=== PATIENT | female | born 1930 | race Asian ===

== ENCOUNTER 2017-07-26 11:28 | Observation (INO) | payer MEDICARE ==
[2017-07-26] VITALS (8 sets, daily range): BP systolic 106–219; BP diastolic 59–102; PULSE 66–80; RESP 18–20; TEMP 97.5–98.7; O2SAT 93–97
[~2017-07-26] VITALS: Ht 149.9 cm; Wt 60.7 kg
[~2017-07-26 11:28] MED LIST: ALEN70 PO; AMLO5TAB96 PO; ASPI81 PO; FISH1000 PO; HYDR-2768 PO; KLOR20TA6 PO; LEVEMIR SQ; NOVOLOGP2 SQ; TAB-TAB PO; ZOCO40TA PO
[2017-07-26] MEDS ORDERED: METF1000 PO (11:51)
[2017-07-26] MEDS ORDERED: LEVEMIR SQ ×2 (11:51)
[2017-07-26] MEDS ORDERED: LISI-515 PO (11:51)
[2017-07-26] MEDS ORDERED: TEMA15CA PO (11:51)
[2017-07-26] MEDS ORDERED: ASPI-516 CHEW (11:51)
[2017-07-26] MEDS ORDERED: METO25TA3 PO (11:51)
[2017-07-26] MEDS ORDERED: PRAV80TA2 PO (11:51)
[2017-07-26] MEDS ORDERED: NOVOLOGP2 SQ (11:51)
[2017-07-26] MEDS ORDERED: OXYB5TAB PO (11:51)
[2017-07-26] MEDS ORDERED: DORZ2SOL15 EACH EYE (11:51)
[2017-07-26] MEDS ORDERED: HYDR25TA5 PO (11:51)
[2017-07-26] MEDS ORDERED: GABA300C5 PO (11:51)
[2017-07-26] MEDS ORDERED: POTA10TA2 PO (11:51)
--- NOTE | 2017-07-26 11:59 | PD ---
HPI Chief Complaint: Fall Time Seen by Provider: 11:38 Travel History International Travel<30 days: No Contact w/Intl Traveler<30days: No Traveled to known affect area: No History of Present Illness HPI This patient is brought in by her daughter. She had 2 falls last night. She called the daughter around 10 PM last night and said that her right hand was weak. Today her strength is normal. Her daughter states that she wasn't making a lot of sense on the phone and seemed confused. There is no head injury or headache. No fever. Blood pressure 220 systolic. No prior history of stroke. No alleviating factors. No exacerbating factors. She denies injury from the fall. She uses a walker to get around. She is not sure why she fell. The daughter believes she has a touch of dementia [facility] Past Medical History Diabetes: Yes Patient Takes Glucophage: No Hypertension: Yes ?: Not Past Surgical History Gynecologic Surgery: Yes (HYSTERECTOMY) Social History Alcohol Use: No Tobacco Use: No Substance Use: No Allergies-Medications (Allergen,Severity, Reaction): Coded Allergies: metformin (Unverified Allergy, Mild, vomiting, 07/26/17) Reported Meds & Prescriptions Reported Meds & Active Scripts Active Reported Temazepam 15 Mg Cap 15 Mg PO HS PRN Pravastatin 80 Mg Tab 80 Mg PO HS Potassium Chloride ER (Potassium Chloride) 10 Meq Tab 10 Meq PO DAILY Oxybutynin ER 24 HR (Oxybutynin Chloride) 5 Mg Tab 5 Mg PO DAILY Novolog Inj (Insulin Aspart) 1,000 Unit/10 Ml Vial 4 Units SQ TID Metoprolol Tartrate 25 Mg Tab 25 Mg PO BID Metformin (Metformin HCl) 1,000 Mg Tab 1,000 Mg PO DAILY@1600 With a meal Lisinopril 20 Mg Tab 20 Mg PO DAILY Levemir Inj (Insulin Detemir) 1,000 unit/ 10 ML Vial 4 Units SQ TID Do not mix with any other Insulin. Levemir Inj (Insulin Detemir) 1,000 unit/ 10 ML Vial 10 Units SQ BID Do not mix with any other Insulin. Hydrochlorothiazide 25 Mg Tab 25 Mg PO DAILY Gabapentin 300 Mg Cap 300 Mg PO BID Dorzolamide-Timolol Opth Drops 22.3-6.8 Mg/Ml Soln 1 Drop EACH EYE BID Aspirin 81 Mg Chew 81 Mg CHEW DAILY Review of Systems General / Constitutional: No: Fever Eyes: No: Visual changes HENT: No: Headaches Cardiovascular: No: Chest Pain or Discomfort Respiratory: No: Shortness of Breath Gastrointestinal: No: Abdominal Pain Genitourinary: No: Dysuria Musculoskeletal: Positive: Weakness, No: Pain Skin: No Rash Neurologic: Positive: Weakness, Change in Mentation, Sensory Disturbance Psychiatric: No: Depression Endocrine: No: Polydipsia Hematologic/Lymphatic: No: Easy Bruising Physical Exam Narrative GENERAL: Well-nourished, well-developed patient in no apparent distress. SKIN: Focused skin assessment reveals no rash and nodules. Skin is Warm and dry. HEAD: Atraumatic. Normocephalic. EYES: Pupils equal and round. No scleral icterus. No injection or drainage. ENT: No nasal bleeding or discharge. Mucous membranes pink and moist. NECK: Trachea midline. No JVD. CARDIOVASCULAR: Regular rate and rhythm. No murmur appreciated. RESPIRATORY: No accessory muscle use. Clear to auscultation. Breath sounds equal bilaterally. GASTROINTESTINAL: Abdomen soft, non-tender, nondistended. Hepatic and splenic margins not palpable. MUSCULOSKELETAL: No obvious deformities. No clubbing. No cyanosis. No edema. NEUROLOGICAL: Awake and alert. No obvious cranial nerve deficits. Motor grossly within normal limits. No slurring. It is understandable a few concentrate, very soft-spoken. PSYCHIATRIC: Appropriate mood and affect; insight and judgment seems reduced Data Data Last Documented VS Vital Signs Date Time Temp Pulse Resp B/P (MAP) Pulse Ox O2 Delivery O2 Flow Rate FiO2 07/26/17 14:36 66 18 106/73 (84) 97 Room Air 07/26/17 11:36 98.7 Orders Orders Electrocardiogram (07/26/17 11:46) Prothrombin Time / Inr (Pt) (07/26/17 11:46) Act Partial Throm Time (Ptt) (07/26/17 11:46) Complete Blood Count With Diff (07/26/17 11:46) Basic Metabolic Panel (Bmp) (07/26/17 11:46) Urinalysis - C+S If Indicated (07/26/17 11:46) Ct Brain W/O Iv Contrast(Rout) (07/26/17 11:46) Ecg Monitoring (07/26/17 11:46) Iv Access Insert/Monitor (07/26/17 11:46) Oximetry (07/26/17 11:46) Sodium Chloride 0.9% Flush (Ns Flush) (07/26/17 12:00) Labetalol Inj (Trandate Inj) (07/26/17 12:00) Cath For Specimen (07/26/17 11:59) Urine Culture (07/26/17 12:15) Femur (Ap & Lat/2vws) (07/26/17 ) Pelvis, Ap Only (Routine) (07/26/17 ) Admit Order (Ed Use Only) (07/26/17 14:49) Labs Laboratory Tests Test 07/26/17 12:00 07/26/17 12:15 White Blood Count 9.9 TH/MM3 Red Blood Count 4.92 MIL/MM3 Hemoglobin 15.2 GM/DL Hematocrit 45.9 % Mean Corpuscular Volume 93.3 FL Mean Corpuscular Hemoglobin 30.9 PG Mean Corpuscular Hemoglobin Concent 33.2 % Red Cell Distribution Width 12.9 % Platelet Count 235 TH/MM3 Mean Platelet Volume 7.8 FL Neutrophils (%) (Auto) 68.1 % Lymphocytes (%) (Auto) 23.3 % Monocytes (%) (Auto) 6.0 % Eosinophils (%) (Auto) 0.7 % Basophils (%) (Auto) 1.9 % Neutrophils # (Auto) 6.7 TH/MM3 Lymphocytes # (Auto) 2.3 TH/MM3 Monocytes # (Auto) 0.6 TH/MM3 Eosinophils # (Auto) 0.1 TH/MM3 Basophils # (Auto) 0.2 TH/MM3 CBC Comment DIFF FINAL Differential Comment Prothrombin Time 11.4 SEC Prothromb Time International Ratio 1.1 RATIO Activated Partial Thromboplast Time 28.5 SEC Blood Urea Nitrogen 19 MG/DL Creatinine 0.60 MG/DL Random Glucose 159 MG/DL Calcium Level 9.3 MG/DL Sodium Level 136 MEQ/L Potassium Level 3.9 MEQ/L Chloride Level 96 MEQ/L Carbon Dioxide Level 34.3 MEQ/L Anion Gap 6 MEQ/L Estimat Glomerular Filtration Rate 94 ML/MIN Urine Collection Type CLEAN CATCH Urine Color YELLOW Urine Turbidity SL CLOUDY Urine pH 8.0 Urine Specific [place] 1.015 Urine Protein 30 mg/dL Urine Glucose (UA) NEG mg/dL Urine Ketones NEG mg/dL Urine Occult Blood TRACE Urine Nitrite NEG Urine Bilirubin NEG Urine Urobilinogen 0.2 MG/DL Urine Leukocyte Esterase MOD Urine RBC 4-9 /hpf Urine WBC 50-99 /hpf Urine WBC Clumps MOD Urine Squamous Epithelial Cells 6-8 /hpf Urine Amorphous Sediment FEW Urine Bacteria MOD /hpf Microscopic Urinalysis Comment CULTURE INDICATED Urine Collection Time 1215 MDM Medical Decision Making Medical Screen Exam Complete: Yes Emergency Medical Condition: Yes Medical Record Reviewed: Yes Differential Diagnosis CVA, TIA, hypertensive urgency Narrative Course I have reviewed the patient's electronic medical record. IV placed and labs sent I reviewed her EKG which shows sinus rhythm at [address] elevation or ectopy. Extended cardiac monitoring reveals sinus rhythm without ectopy Brain CT shows old stroke change I don't see an acute neurologic deficit now. She does seem a bit slow and confused Urinalysis shows 50-1 white cells consistent with UTI and will be cultured CBC metabolic profile is reasonably normal, mild hyperglycemia Patient couldn't really stand on her own. She has diffuse generalized weakness. I don't see focal deficit. She does have a bruise in the right hip so I did some x-rays. Both femur and pelvis are negative for fracture Case reviewed with primary physician Dr. Marc Owens She will observe in the hospital for generalized weakness TIA and UTI Diagnosis Primary Impression: Generalized weakness Additional Impressions: Transient ischemic attack Qualified Codes: G45.9 - Transient cerebral ischemic attack, unspecified UTI (urinary tract infection) Qualified Codes: N30.00 - Acute cystitis without hematuria Admitting Information Admitting Physician Requests: Observation Gabriel Blood MD Jul 26, 2017 11:59
[2017-07-26] MEDS ORDERED: SODIUM CHLORIDE 0.9% FLUSH 10 ML FLUSH IVF PRN (12:00)
[2017-07-26] MEDS ORDERED: LABETALOL HCL 100 MG/20 ML VIAL IV PUSH ONE (12:00)
[2017-07-26 12:13] LABS: AUTOMATED NEUTROPHIL # 6.7 TH/MM3 (1.8-7.7); BASOPHIL # 0.2 TH/MM3 (0-0.2); BASOPHIL % 1.9 % (0.0-2.0); EOSINOPHIL # 0.1 TH/MM3 (0-0.4); EOSINOPHIL % 0.7 % (0.0-4.0); HEMATOCRIT 45.9 % (35.0-46.0); HEMOGLOBIN 15.2 GM/DL (11.6-15.3); LYMPH % 23.3 % (9.0-44.0); LYMPHOCYTE # 2.3 TH/MM3 (1.0-4.8); MEAN CELL VOLUME 93.3 FL (80.0-100.0); MEAN CORPUSCULAR HEMOGLOBIN 30.9 PG (27.0-34.0); MEAN CORPUSCULAR HGB CONC 33.2 % (32.0-36.0); MEAN PLATELET VOLUME 7.8 FL (7.0-11.0); MONOCYTE # 0.6 TH/MM3 (0-0.9); NEUT % 68.1 % (16.0-70.0); PLATELET COUNT 235 TH/MM3 (150-450); RED BLOOD COUNT 4.92 MIL/MM3 (4.00-5.30); RED CELL DISTRIBUTION WIDTH 12.9 % (11.6-17.2); WHITE BLOOD COUNT 9.9 TH/MM3 (4.0-11.0)
[2017-07-26 12:21] LABS: BILIRUBIN, URINE NEG (NEG); BLOOD, URINE TRACE (NEG); GLUCOSE,URINE NEG (NEG); KETONE, URINE NEG (NEG); NITRITE,URINE NEG (NEG); URINE COLOR YELLOW (YELLW/STRAW); URINE LEUKOCYTE ESTERASE MOD (NEG)
[2017-07-26 12:28] LABS: CALCIUM 9.3 MG/DL (8.5-10.1)
[2017-07-26 12:29] LABS: BICARBONATE 34.3 MEQ/L (21.0-32.0)
[2017-07-26 12:30] LABS: INTERNATIONAL NORMALIZED RATIO 1.1 RATIO; PROTHROMBIN TIME - PATIENT 11.4 SEC (9.8-11.6)
[2017-07-26 12:30] LABS: AMORPHOUS SEDIMENT, URINE FEW; BACTERIA, URINE MOD /hpf; WHITE BLOOD CELL CLUMPS MOD
[2017-07-26 12:32] LABS: CREATININE 0.6 MG/DL (0.50-1.00)
--- NOTE | 2017-07-26 12:39 | RADRPT ---
EXAM DATE/TIME: 07/26/2017 12:20 [facility] COMPARISON: No previous studies available for comparison. INDICATIONS : Patient fell last night. RADIATION DOSE: 62.98 CTDIvol (mGy) MEDICAL HISTORY : Hypertension. Diabetes. SURGICAL HISTORY : Hysterectomy. Right shoulder repair. ENCOUNTER: Initial ACUITY: 2 days PAIN SCALE: 5/10 LOCATION: cranial TECHNIQUE: Multiple contiguous axial images were obtained of the head. Using automated exposure control and adj ustment of the mA and/or kV according to patient size, radiation dose was kept as low as reasonably a chievable to obtain optimal diagnostic quality images. DICOM format image data is available electro nically for review and comparison. FINDINGS: Chronic ischemic changes are noted. There is focal encephalomalacia in the right frontal lobe consist ent with an old infarct. An old deep white matter infarct is identified in the left frontal lobe. There are no findings characteristic of an acute infarct or hemorrhage. There is no evidence of edema or mass effect. There are no extra-axial fluid collections. Right maxillary sinus is completely opacified. CONCLUSION: 1. 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 2. No evidence of acute infarct, hemorrhage, mass or edema. 3. Opacified right maxillary sinus. Paxton Steen MD on July 26, 2017 at 12:34 Board Certified Radiologist. This report was verified electronically.
--- NOTE | 2017-07-26 14:55 | RADRPT ---
EXAM DATE/TIME: 07/26/2017 14:07 [facility] COMPARISON: No previous studies available for comparison. INDICATIONS : Right side hip pain post fall last night MEDICAL HISTORY : Hypertension. Diabetes mellitus type II. SURGICAL HISTORY : None. ENCOUNTER: Initial ACUITY: 2 days PAIN SCORE: 4/10 LOCATION: Right lateral femur FINDINGS: 4 views of the right femur show no fracture or dislocation. There is a rounded focus of sclerosis inv olving the cortex of the proximal femoral metaphysis on its lateral aspect. No periosteal thickening. Bone mineralization is normal throughout. Atherosclerotic changes seen involving the SFA. 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 CONCLUSION: 1. No acute abnormality. 2. Focus of sclerosis involving the proximal femoral metaphysis. Exact etiology is uncertain. 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 An outpatient CT scan could be utilized to further evaluate. Norman Michael Jr., MD on July 26, 2017 at 14:48 Board Certified Radiologist. This report was verified electronically.
--- NOTE | 2017-07-26 14:56 | RADRPT ---
EXAM DATE/TIME: 07/26/2017 14:07 [facility] COMPARISON: No previous studies available for comparison. INDICATIONS : Right side pelvic pain post fall MEDICAL HISTORY : Diabetes mellitus type II. Hypertension SURGICAL HISTORY : None. ENCOUNTER: Initial ACUITY: 2 days PAIN SCORE: 4/10 LOCATION: Right lateral pelvis FINDINGS: A single frontal view of the pelvis demonstrates no evidence of fracture. The bony pelvic ring is in tact. Moderate diffuse bony demineralization. Minimal atherosclerotic calcification of the regional v asculature. Dextroscoliosis of the visualized portions of the lumbar spine with associated degenerati ve changes. CONCLUSION: No fracture. Tera Del Valle MD on July 26, 2017 at 14:52 Board Certified Radiologist. This report was verified electronically.
[2017-07-26] MEDS ORDERED: DEXTROSE 50% IN WATER 50 ML VIAL(D50) IV PUSH PRN (16:00)
[2017-07-26] MEDS ORDERED: GLUCAGON 1 MG/ML VIAL OTHER PRN (16:00)
[2017-07-26] MEDS ORDERED: SODIUM CHLORIDE 0.9% FLUSH 10 ML FLUSH IV FLUSH PRN (16:00)
[2017-07-26] MEDS ORDERED: TEMAZEPAM 15 MG CAP PO PRN (16:00)
[2017-07-26] MEDS: cefTRIAXone INJ 1,000 MG in SODIUM CHLORIDE 0.9% INJ 100 ML IV SCH (17:01)
[2017-07-26] MEDS: metFORMIN HCL 500 MG TAB PO SCH (17:45)
[2017-07-26] MEDS ORDERED: INSULIN ASPART 1,000 UNITS/10 ML VIAL SQ SCH (18:00)
[2017-07-26] MEDS ORDERED: INSULIN DETEMIR 100 UNITS/ML VIAL SQ SCH (18:00)
[2017-07-26] MEDS: INSULIN ASPART SUPPLEMENTAL SCALE SQ SCH ×2 (18:43→20:57)
[2017-07-26] MEDS: INSULIN DETEMIR 100 UNITS/ML VIAL SQ SCH (20:56)
[2017-07-26] MEDS: GABAPENTIN 300 MG CAP PO SCH (20:57)
[2017-07-26] MEDS: METOPROLOL TARTRATE 25 MG TAB PO SCH (20:57)
[2017-07-26] MEDS: PRAVASTATIN SOD 80 MG TAB PO SCH (20:57)
[2017-07-26] MEDS: SODIUM CHLORIDE 0.9% FLUSH 10 ML FLUSH IV FLUSH SCH (20:57)
[2017-07-26] MEDS: DORZOLAMIDE/TIMOLOL OPTH SOLN 10 ML BTL EACH EYE SCH (21:00)
[2017-07-27] VITALS (8 sets, daily range): BP systolic 98–187; BP diastolic 54–96; PULSE 58–82; RESP 16–20; TEMP 96–97.5; O2SAT 93–95
[2017-07-27] MEDS: INSULIN ASPART SUPPLEMENTAL SCALE SQ SCH ×4 (08:00→21:57)
[2017-07-27] MEDS ORDERED: ASPIRIN 81 MG CHEW TAB CHEW SCH (09:00)
[2017-07-27] MEDS ORDERED: TOLTERODINE TARTRATE 2 MG CAP LA PO SCH (09:00)
[2017-07-27] MEDS: INSULIN DETEMIR 100 UNITS/ML VIAL SQ SCH ×2 (09:00→21:56)
--- NOTE | 2017-07-27 09:54 | RADRPT ---
EXAM DATE/TIME: 07/27/2017 09:26 [facility] COMPARISON: No previous studies available for comparison. INDICATIONS : Cerebrovascular accident. MEDICAL HISTORY : Hypertension. Diabetes. SURGICAL HISTORY : Hysterectomy. Right shoulder surgery. ENCOUNTER: Initial ACUITY: 1 day PAIN SCORE: 1/10 LOCATION: Bilateral neck PEAK SYSTOLIC VELOCITIES (cm/sec): ICA/CCA RATIO: Right: 1.5 Left: 2.1 ICA: Right: 84 Left: 106 CCA: Right: 56 Left: 50 ECA: Right: 50 Left: 44 VERTEBRAL: Right: 47 antegrade Left: 49 antegrade Elevated flow velocities and ICA/CCA ratios have been found to correlate with increased degrees of vessel stenosis, calculated as percentage of diameter relative to a normal segment of distal ICA/CCA FINDINGS: RIGHT CAROTID: Mild atherosclerotic plaquing at the carotid bifurcation. No significant stenosis is visualized. The waveforms are within normal limits. LEFT CAROTID: Mild atherosclerotic plaquing at the carotid bifurcation. No significant stenosis is visualized. The waveforms are within normal limits. VERTEBRAL ARTERIES: Antegrade flow is seen in both vertebral arteries. MISCELLANEOUS: None. CONCLUSION: There is mild atherosclerotic plaquing at both carotid bifurcations. No focal high grade or hemodynam ically significant stenosis. David Zavala MD on July 27, 2017 at 9:51 Board Certified Radiologist. This report was verified electronically.
[2017-07-27] MEDS: HYDROCHLOROTHIAZIDE 25 MG TAB PO SCH (09:56)
[2017-07-27] MEDS: POTASSIUM CHLORIDE 10 MEQ CONTROLLED RELEASE TAB PO SCH (09:56)
[2017-07-27] MEDS: METOPROLOL TARTRATE 25 MG TAB PO SCH ×2 (09:57→21:55)
[2017-07-27] MEDS: LISINOPRIL 20 MG TAB PO SCH (09:57)
[2017-07-27] MEDS: GABAPENTIN 300 MG CAP PO SCH ×2 (09:57→21:55)
[2017-07-27] MEDS: SODIUM CHLORIDE 0.9% FLUSH 10 ML FLUSH IV FLUSH SCH ×2 (09:58→21:55)
[2017-07-27] MEDS: DORZOLAMIDE/TIMOLOL OPTH SOLN 10 ML BTL EACH EYE SCH ×2 (09:59→21:56)
--- NOTE | 2017-07-27 10:55 | MH ---
cc: Shital Webb MD DATE OF ADMISSION: 07/26/2017 ADMITTING DIAGNOSIS: Urinary tract infection, weakness. HISTORY OF PRESENT ILLNESS: The history is obtained from the patient, her family and obtaining and reviewing electronic medical records. The patient was brought to the emergency room today by her family. According to one daughter, the patient called her last night and said that her right hand and foot were weak. The patient's daughter came to the house and by the time the daughter came to the house, she states the patient was sitting in her chair and did not seem to be having any other problems. She got her up and helped her get to bed. The patient does use a walker to ambulate according to the daughter. She felt that her right leg was dragging a little bit. It is important to note that the patient does have dementia and it is a little bit difficult to elicit or for her to recall a lot of the events that occurred. According to the family members, the patient does get up several times at night to urinate, at approximately 05:00 in the morning, the niece who lives with her got up to give her her insulin and heard her calling. At that time, she found her in the bedroom on the floor. Not able to tell me, this relative was not in the room, in what position they found her. From best that we can determine in speaking to the patient, she got up to go to the restroom and she lost her balance on her walker. There is no mention of weakness that may have caused this. The niece was able to get her up, gave her insulin and some breakfast. Apparently her sugars were in the 200s at this time and left her in a chair. Other family members who came later in the day and that morning to check on her said they were unable to get her to stand and became concerned, called the paramedics and brought her to the emergency room. The patient really cannot recall most of the event and what transpired last night. She requires a lot of prompting from her family. The family does tell me that earlier in the day, before going to the emergency room, she seemed a little bit more confused, was speaking American, which even though she is American, she normally does not speak that language a lot apparently. The patient tells me right now that her main complaint is that she is sore from where she fell. She does not feel like she has any difficulty with her right hand or right leg at this point. PAST MEDICAL HISTORY: Significant for type 2 diabetes, hypertension, hyperlipidemia, dementia. She does have issues with recurrent UTIs. PAST SURGICAL HISTORY: Includes hysterectomy and right shoulder repair. ALLERGIES: None. MEDICATIONS: Include pravastatin 80 milligrams at bedtime, metoprolol 25 milligrams twice a day, lisinopril 20 milligrams daily, baby aspirin, gabapentin 300 milligrams twice a day, temazepam 15 milligrams at bedtime as needed, potassium chloride 10 milliequivalents daily, hydrochlorothiazide 25 milligrams daily, dorzolamide, timolol, ophthalmic drops 1 drop in each eye twice a day, metformin 1000 milligrams in the evening, insulin, she takes Levemir 10 units twice a day and Novolog 4 units three times a day. She also takes oxybutynin extended release 24, 5 milligrams daily. HABITS: She does not smoke or consume alcohol. SOCIAL HISTORY: She lives with family members. She is . She uses a walker to ambulate. REVIEW OF SYSTEMS: No complaints of chest pain, no shortness of breath. No cough or congestion. She does state that she has had a good appetite. No change in her bowel movements. She has been more incontinent of late, usually which is consistent with her UTIs. She is complaining of some soreness in the right leg when she ambulates since the fall. PHYSICAL EXAMINATION: VITAL SIGNS: Temperature is 97.5, pulse is 70, respirations 18, blood pressure is 127/59, pulse oximetry is 93% on room air. GENERAL: She is alert and very pleasant, smiling, in good spirits. Does not appear to be in any acute distress. HEENT: Normocephalic, atraumatic. EOM is intact. She has moist oral mucosa. NECK: Supple. I hear no bruits. PULMONARY: Clear to auscultation bilaterally. CARDIOVASCULAR: Her heart is regular. I hear no ectopy or murmurs. ABDOMEN: Good bowel sounds in all 4 quadrants. No rebound or guarding. EXTREMITIES: Show no clubbing, cyanosis or edema. She has good grasp and good sensation in both hands and feet at this point. She does have areas of ecchymosis on the dorsum aspect of her right wrist and into her middle and ring fingers. She does have a small area of ecchymosis as well on her lateral thigh, but much larger on the posterior area, close overlying her hip. She is able to move her legs, raise them and equally from the bed. No pain elicited in external or internal rotation of her hips. LABORATORY DATA: Lab work that was done when she came in showed a white count of 9.9, hemoglobin of 15.2, hematocrit of 45.9. Sodium was 136, potassium 3.9, BUN was 19, creatinine was 0.6, random glucose was 159. PT was 11.4, INR was 1.1, PTT was 28.5. Her UA showed moderate leukocyte esterase, moderate WBCs and clumps, moderate bacteria. IMAGING: X-ray of the pelvis showed no fracture. X-ray of the femur showed fracture/dislocation. Focus of sclerosis involving the proximal femoral metaphysis was present. Recommended outpatient CT to be done to better evaluate. CT scan of the brain was done that showed old infarcts in the right frontal cortex and left frontal deep white matter. No evidence of acute infarct or pacified right maxillary sinus. ASSESSMENT AND PLAN: This is a 87-year-old female presenting to the emergency room by the family, after a fall last evening and questionable what appears to have been a transient episode of numbness and weakness in the right hand and foot. The history is very difficult to ascertain, but it does sound suspicious for a transient ischemic attack. At this point, she has been admitted for workup for a transient ischemic attack. We will continue on her current medications and put her on a full aspirin. In terms of her diabetes, we will continue with her Levemir and metformin, put her on a sliding scale. I do not think she is very compliant with a diabetic diet, so we will how her sugars do here in the hospital on an [place] [employer] diet. In terms of her hypertension, continue with her regular medication. She does have an urinary tract infection. She has had episodes of confusion in the past with her urinary tract infections. We will start her on Rocephin intravenous and then switch her over depending on how she does and what the culture shows. Further recommendations as the case develops. Shital Webb MD [facility] , 06:10 PM , 06:57 PM
--- NOTE | 2017-07-27 12:17 | HHI.PR ---
Subjective Remarks some numbness this am Objective Vitals Vital Signs Date Time Temp Pulse Resp B/P (MAP) Pulse Ox O2 Delivery O2 Flow Rate FiO2 07/27/17 08:00 97.5 70 16 168/96 (120) 94 07/27/17 04:00 96.0 59 16 98/54 (69) 94 07/27/17 00:00 96.2 60 16 100/56 (71) 94 07/26/17 20:57 69 07/26/17 20:00 98.0 71 18 160/74 (102) 95 07/26/17 17:54 97.5 70 18 127/59 (81) 93 07/26/17 15:30 63 20 134/67 (89) 95 07/26/17 14:36 66 18 106/73 (84) 97 Room Air 07/26/17 12:52 69 18 106/73 (84) 96 Room Air 07/26/17 12:21 76 97 07/26/17 12:21 76 20 147/92 (110) 97 Room Air 07/26/17 12:21 76 20 147/92 (110) 97 Room Air Result Diagram: 07/26/17 1200 07/26/17 1200 Imaging Last Impressions Carotid Artery Ultrasound 07/27/17 0000 Signed Impressions: Service Date/Time: Thursday, July 27, 2017 09:26 - CONCLUSION: There is mild atherosclerotic plaquing at both carotid bifurcations. No focal high grade or hemodynamically significant stenosis. David Zavala MD Head CT 07/26/17 1146 Signed Impressions: Service Date/Time: Wednesday, July 26, 2017 12:20 - CONCLUSION: 1. 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 2. No evidence of acute infarct, hemorrhage, mass or edema. 3. Opacified right maxillary sinus. Paxton Steen MD Pelvis X-Ray 07/26/17 0000 Signed Impressions: Service Date/Time: Wednesday, July 26, 2017 14:07 - CONCLUSION: No fracture. Tera Del Valle MD Femur X-Ray 07/26/17 0000 Signed Impressions: Service Date/Time: Wednesday, July 26, 2017 14:07 - CONCLUSION: 1. No acute abnormality. 2. Focus of sclerosis involving the proximal femoral metaphysis. Exact etiology is uncertain. This may simply relate to an osteoid osteoma. An outpatient CT scan could be utilized to further evaluate. Norman Michael Jr., MD Objective Remarks Lying in bed [place], alert, cta ant rrr good bowel sounds moves all extremities well A/P Problem List: (1) Transient ischemic attack ICD Codes: G45.9 - Transient cerebral ischemic attack, unspecified Status: Acute Plan: carotid ultrasound showed mild plaque awaiting MRI's (2) Diabetes ICD Codes: E11.9 - Type 2 diabetes mellitus without complications Status: Chronic Plan: cont metformin not eating as much cover with sliding scale (3) Generalized weakness ICD Codes: R53.1 - Weakness Status: Acute Plan: ambulated with PT needed assistance uses walker at home family would like to take her home but may need rehab try to mobilize today (4) UTI (urinary tract infection) ICD Codes: N39.0 - Urinary tract infection, site not specified Status: Acute Plan: on rocephin await culture (5) Dementia ICD Codes: F03.90 - Unspecified dementia without behavioral disturbance Problem Qualifiers (1) Transient ischemic attack: Qualified Codes: G45.9 - Transient cerebral ischemic attack, unspecified (2) UTI (urinary tract infection): Qualified Codes: N30.00 - Acute cystitis without hematuria Shital Webb MD Jul 27, 2017 12:17
--- NOTE | 2017-07-27 14:22 | RADRPT ---
EXAM DATE/TIME: 07/27/2017 13:32 [facility] COMPARISON: CT BRAIN W/O CONTRAST, July 26, 2017, 12:20. INDICATIONS : Right sided weakness. MEDICAL HISTORY : Diabetes mellitus type 2. Dementia. SURGICAL HISTORY : Rotator cuff, right. Hysterectomy. ENCOUNTER: Initial ACUITY: 2 day PAIN SCORE: 0/10 LOCATION: head TECHNIQUE: Multiplanar, multisequence MRI of the brain was performed without contrast. FINDINGS: CEREBRUM: The ventricles are normal for age. There is diffuse bilateral cortical atrophy. No evidence of midlin e shift, mass lesion, hemorrhage . No extraaxial fluid collections are seen. The pituitary gland an d suprasellar cistern are normal in configuration. There is evidence of an old infarct involving the right frontal temporal region and the left mid parietal lobe. WHITE MATTER: Moderate chronic white matter changes are seen bilaterally characteristic of ischemic demyelinization . POSTERIOR FOSSA: The cerebellum and brainstem are intact. The 4th ventricle is midline. The cerebellopontine angle is unremarkable. The cerebellar tonsils are normal in position. DIFFUSION IMAGING: There is a focal area of increased signal in the left thalamus characteristic for a small focal acute infarct. There is a smaller area of increased signal in the medial left occipital lobe characteristi c of a small acute infarct. No other acute infarcts are demonstrated. EXTRACRANIAL: Chronic sinus disease in the right maxillary sinus. CONCLUSION: 1. Small acute infarct involving the left thalamus. 2. Small focal acute infarct involving the medial left occipital lobe. 3. Diffuse bilateral cortical atrophy and chronic white matter changes. 4. 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 Chronic right maxillary sinus disease. David Zavala MD on July 27, 2017 at 14:15 Board Certified Radiologist. This report was verified electronically.
--- NOTE | 2017-07-27 14:27 | RADRPT ---
EXAM DATE/TIME: 07/27/2017 13:32 [place] COMPARISON: No previous studies available for comparison. INDICATIONS : Right sided weakness. MEDICAL HISTORY : Diabetes mellitus type 2. Dementia. SURGICAL HISTORY : Rotator cuff, right. Hysterectomy. ENCOUNTER: Initial ACUITY: 2 day PAIN SCORE: 0/10 LOCATION: head Please note a normal MRA of the brain does not entirely exclude the possibility of a small aneurysm, nor the possibility of distal intracranial vessel disease. TECHNIQUE: 3D time of flight MRA was performed. Source images, multiplanar STS MIP, and 3D volume MIP reconstru ctions were reviewed. FINDINGS: There is excellent visualization of the major intracranial arteries out to the second-order branch ve ssels. The patient has variant anatomy. 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 Persistent circulation noted on the left. There is an infundibulum seen involving the posterior cerebral artery on the left which arises from the ICA . There is no evidence for aneurysm or vascular malformation. Atherosclerotic plaque is seen involvi ng the intracavernous ICA on the right. This generates a 40% stenosis at the junction of the intracav ernous and supraclinoid ICA. There is also 40-50% stenosis involving the proximal M2 branch on the ri ght. No luminal narrowing seen on the left. No filling defects observed to suggest thrombus. CONCLUSION: 1. No emboli or thrombus observed. 2. Atherosclerotic disease particularly on the right as detailed above. This would not coincide with the patient's symptoms of right-sided weakness. Norman Michael Jr., MD on July 27, 2017 at 14:14 Board Certified Radiologist. This report was verified electronically.
--- NOTE | 2017-07-27 15:35 | ECHRPT ---
Indication: cva/tia CONCLUSIONS The left ventricular systolic function is normal with an estimated ejection fraction in the range of 55-60%. Doppler parameters are consistent with impaired left ventricular relaxtion (grade 1 diastolic dysfun ction). Trace mitral valve regurgitation. There is trace tricuspid valve regurgitation. BP: / HR: Rhythm: MEASUREMENTS (Male / Female) Normal Values Technical Quality:Technically difficult study 2D ECHO LV Diastolic Diameter PLAX 5.0 cm 4.2 - 5.9 / 3.9 - 5.3 cm LV Systolic Diameter PLAX 3.9 cm IVS Diastolic Thickness 0.8 cm 0.6 - 1.0 / 0.6 - 0.9 cm LVPW Diastolic Thickness 0.8 cm 0.6 - 1.0 / 0.6 - 0.9 cm LV Relative Wall Thickness 0.3 RV Internal Dim ED PLAX 2.2 cm M-MODE Aortic Root Diameter MM 3.5 cm LA Systolic Diameter MM 3.0 cm LA Ao Ratio MM 0.9 AV Cusp Separation MM 1.6 cm DOPPLER Mitral E Point Velocity 26.7 cm/s Mitral A Point Velocity 86.9 cm/s Mitral E to A Ratio 0.3 LV E' Lateral Velocity 5.6 cm/s Mitral E to LV E' Lateral Ratio 4.8 LV E' Septal Velocity 4.5 cm/s Mitral E to LV E' Septal Ratio 6.0 FINDINGS LEFT VENTRICLE Normal left ventricular size. The left ventricular systolic function is normal with an estimated ejection fraction in the range of 55-60%. No regional wall motion abnormalities are present. Doppler parameters are consistent with impaired left ventricular relaxtion (grade 1 diastolic dysfun ction). RIGHT VENTRICLE The right ventricle was not well visualized. LEFT ATRIUM The left atrial size is normal. RIGHT ATRIUM The right atrium is not well visualized. ATRIAL SEPTUM Normal atrial septal thickness AORTA The aortic root and proximal ascending aorta are normal in size on limited imaging. MITRAL VALVE Structurally normal mitral valve. Mild mitral annular calcification. Trace mitral valve regurgitation. No mitral valve stenosis. AORTIC VALVE Trileaflet aortic valve. No aortic valve stenosis or regurgitation. TRICUSPID VALVE Structurally normal tricuspid valve. There is trace tricuspid valve regurgitation. No tricuspid valve stenosis. PULMONARY VALVE The pulmonary valve is not well visualized. PERICARDIUM No pericardial effusion. Garry Easley DO (Electronically Signed) Final Date:27 July 2017 15:34
[2017-07-27 16:08] LABS: CALCIUM 9.2 MG/DL (8.5-10.1)
[2017-07-27 16:09] LABS: BICARBONATE 34.8 MEQ/L (21.0-32.0)
[2017-07-27 16:12] LABS: CREATININE 0.65 MG/DL (0.50-1.00)
[2017-07-27] MEDS: cefTRIAXone INJ 1,000 MG in SODIUM CHLORIDE 0.9% INJ 100 ML IV SCH (17:43)
[2017-07-27] MEDS: metFORMIN HCL 500 MG TAB PO SCH (17:44)
[2017-07-27] MEDS: CLOPIDOGREL 75 MG TAB PO SCH (20:32)
[2017-07-27] MEDS: PRAVASTATIN SOD 80 MG TAB PO SCH (21:55)
[2017-07-28] VITALS: BP 117/58; PULSE 63; RESP 20; TEMP 97.2; O2SAT 94
[2017-07-28 04:00] VITALS: BP 103/50; PULSE 61; RESP 20; TEMP 96.4; O2SAT 94
[2017-07-28 08:00] VITALS: BP 142/84; PULSE 64; PULSE 69; RESP 14; TEMP 96.5; O2SAT 91
[2017-07-28] MEDS: INSULIN ASPART SUPPLEMENTAL SCALE SQ SCH ×2 (08:00→12:48)
--- NOTE | 2017-07-28 08:35 | EKG ---
Date Performed: 07/26/2017 Time Performed: 11:56:58 PTAGE: 87 years EKG: Sinus rhythm VOLTAGE CRITERIA FOR LVH POSSIBLE ANTERIOR MYOCARDIAL INFARCTION ABNORMAL ECG Compared to PREVIOUS TRACING , voltage for LVH is new. PREVIOUS TRACIN08/05/1999 14.42 DOCTOR: Anjel Simon Interpretating Date/Time 07/28/2017 08:33:31
[2017-07-28] MEDS: SODIUM CHLORIDE 0.9% FLUSH 10 ML FLUSH IV FLUSH SCH ×2 (09:00→09:53)
[2017-07-28] MEDS ORDERED: ASPIRIN 325 MG TAB PO SCH (09:00)
[2017-07-28] MEDS: DORZOLAMIDE/TIMOLOL OPTH SOLN 10 ML BTL EACH EYE SCH (09:53)
[2017-07-28] MEDS: INSULIN DETEMIR 100 UNITS/ML VIAL SQ SCH (09:53)
[2017-07-28] MEDS: GABAPENTIN 300 MG CAP PO SCH (09:54)
[2017-07-28] MEDS: LISINOPRIL 20 MG TAB PO SCH (09:54)
[2017-07-28] MEDS: CLOPIDOGREL 75 MG TAB PO SCH (09:54)
[2017-07-28] MEDS: HYDROCHLOROTHIAZIDE 25 MG TAB PO SCH (09:55)
[2017-07-28] MEDS: POTASSIUM CHLORIDE 10 MEQ CONTROLLED RELEASE TAB PO SCH (09:55)
[2017-07-28] MEDS: METOPROLOL TARTRATE 25 MG TAB PO SCH (09:55)
--- NOTE | 2017-07-28 11:18 | HHI.PR ---
Subjective Remarks No complaints, grandaughter at bedside, family making arrangements for care at home, she needs full assistence and they are working on care at night as she tends to get up to use the bathroom , they have a commode but not a front wheeled walker, granddaughter will be with her during the day. They are all very engaged with her care Objective Vitals Vital Signs Date Time Temp Pulse Resp B/P (MAP) Pulse Ox O2 Delivery O2 Flow Rate FiO2 07/28/17 08:00 96.5 69 14 142/84 (103) 91 07/28/17 04:00 96.4 61 20 103/50 (67) 94 07/28/17 00:00 97.2 63 20 117/58 (77) 94 07/27/17 21:00 74 07/27/17 20:00 96.1 76 20 141/66 (91) 93 07/27/17 18:07 82 150/86 (107) 07/27/17 16:00 97.5 66 20 187/85 (119) 95 07/27/17 12:00 97.5 58 20 155/72 (99) 95 Result Diagram: 07/26/17 1200 07/27/17 1530 Imaging Last Impressions Head Magnetic Resonance Angiography 07/27/17 0000 Signed Impressions: Service Date/Time: Thursday, July 27, 2017 13:32 - CONCLUSION: 1. No emboli or thrombus observed. 2. Atherosclerotic disease particularly on the right as detailed above. This would not coincide with the patient's symptoms of right-sided weakness. Norman Michael Jr., MD Carotid Artery Ultrasound 07/27/17 0000 Signed Impressions: Service Date/Time: Thursday, July 27, 2017 09:26 - CONCLUSION: There is mild atherosclerotic plaquing at both carotid bifurcations. No focal high grade or hemodynamically significant stenosis. David Zavala MD Brain MRI 07/27/17 0000 Signed Impressions: Service Date/Time: Thursday, July 27, 2017 13:32 - CONCLUSION: 1. Small acute infarct involving the left thalamus. 2. Small focal acute infarct involving the medial left occipital lobe. 3. Diffuse bilateral cortical atrophy and chronic white matter changes. 4. 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 Chronic right maxillary sinus disease. David Zavala MD Head CT 07/26/17 1146 Signed Impressions: Service Date/Time: Wednesday, July 26, 2017 12:20 - CONCLUSION: 1. 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 2. No evidence of acute infarct, hemorrhage, mass or edema. 3. Opacified right maxillary sinus. Paxton Steen MD Pelvis X-Ray 07/26/17 0000 Signed Impressions: Service Date/Time: Wednesday, July 26, 2017 14:07 - CONCLUSION: No fracture. Tera Del Valle MD Femur X-Ray 07/26/17 0000 Signed Impressions: Service Date/Time: Wednesday, July 26, 2017 14:07 - CONCLUSION: 1. No acute abnormality. 2. Focus of sclerosis involving the proximal femoral metaphysis. Exact etiology is uncertain. This may simply relate to an osteoid osteoma. An outpatient CT scan could be utilized to further evaluate. Norman Michael Jr., MD Last Impressions Carotid Artery Ultrasound 07/27/17 0000 Signed Impressions: Service Date/Time: Thursday, July 27, 2017 09:26 - CONCLUSION: There is mild atherosclerotic plaquing at both carotid bifurcations. No focal high grade or hemodynamically significant stenosis. David Zavala MD Head CT 07/26/17 1146 Signed Impressions: Service Date/Time: Wednesday, July 26, 2017 12:20 - CONCLUSION: 1. 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 2. No evidence of acute infarct, hemorrhage, mass or edema. 3. Opacified right maxillary sinus. Paxton Steen MD Pelvis X-Ray 07/26/17 0000 Signed Impressions: Service Date/Time: Wednesday, July 26, 2017 14:07 - CONCLUSION: No fracture. Tera Del Valle MD Femur X-Ray 07/26/17 0000 Signed Impressions: Service Date/Time: Wednesday, July 26, 2017 14:07 - CONCLUSION: 1. No acute abnormality. 2. Focus of sclerosis involving the proximal femoral metaphysis. Exact etiology is uncertain. This may simply relate to an osteoid osteoma. An outpatient CT scan could be utilized to further evaluate. Norman Michael Jr., MD Objective Remarks sitting in recliner, dosing arousable lungs clear heart rrr +bs ,nontender no edema A/P Problem List: (1) Transient ischemic attack ICD Codes: G45.9 - Transient cerebral ischemic attack, unspecified Status: Acute Plan: carotid ultrasound showed mild plaques MRI showed acute small thalamic and occipital infarct (2) Diabetes ICD Codes: E11.9 - Type 2 diabetes mellitus without complications Status: Chronic Plan: cont metformin appetite improving covered with sliding scale (3) Generalized weakness ICD Codes: R53.1 - Weakness Status: Acute Plan: ambulated with PT needed assistance uses walker with seat at home will order front wheeled walker family will purchase a gait belt (4) UTI (urinary tract infection) ICD Codes: N39.0 - Urinary tract infection, site not specified Status: Acute Plan: on rocephin E.Coli will d/c on bactrim (5) Dementia ICD Codes: F03.90 - Unspecified dementia without behavioral disturbance Status: Chronic Plan: stable, lives with family and has close supervision of medications, meals etc (6) CVA (cerebral vascular accident) ICD Codes: I63.9 - Cerebral infarction, unspecified Status: Acute Plan: was on aspirin plavix added Discharge Planning plan for discharge today, family making arrangement for safe home environment Problem Qualifiers (1) Transient ischemic attack: Qualified Codes: G45.9 - Transient cerebral ischemic attack, unspecified (2) UTI (urinary tract infection): Qualified Codes: N30.00 - Acute cystitis without hematuria Shital Webb MD Jul 28, 2017 11:18
[2017-07-28] MEDS ORDERED: PLAV75TA29 PO (11:31)
[2017-07-28] MEDS ORDERED: BACT800T5 PO (11:31)
--- NOTE | 2017-07-28 11:32 | HHI.FF ---
Face to Face Verification Diagnosis: (1) CVA (cerebral vascular accident) (2) Generalized weakness (3) UTI (urinary tract infection) (4) Dementia (5) Diabetes Physical Therapy Order: Evaluate and Treat, Improve ambulation, Strength and gait training Home Health Aide Order: To Assist In: Bathing and personal care I have seen patient Sunni Suarez on 07/28/17. My clinical findings support the need for the requested home health care services because: Ltd mobility - disease progression Limited ability to care for self Impaired cognition/judgement High risk of falls I certify that my clinical findings support that this patient is homebound because: Impaired cognitive ability/safety Unsteady gait/balance Unsafe to leave home unassisted Shital Webb MD Jul 28, 2017 11:32
[2017-07-28] MEDS ORDERED: WALKER WHEELS/F1 MIS (11:34)
[2017-07-28 12:00] VITALS: BP 148/93; PULSE 67; RESP 18; TEMP 97; O2SAT 94
[2017-07-28] MEDS: metFORMIN HCL 500 MG TAB PO SCH (16:27)
--- NOTE | 2017-08-01 00:28 | HM ---
Date Performed: 07/27/2017 Time Performed: 17:14:00 HOOKUP DATE: 07/27/17 05:14:00 PM Tue ANALYSIS START TIME: 07/27/2017 5:19:00 PM ANALYSIS END TIME: 07/28/2017 4:50:07 PM PATIENT AGE: 87 PATIENT HEIGHT PATIENT WEIGHT: 154 DRUG LIST: ROOM # [id number] PATIENT DIAGNOSIS: general weakness/TIA/UTI TEST NARRATIVE: The patient's average heart rate was 70 BPM. No episodes of tachycardia wer e noted. No episodes of bradycardia were noted. No pauses exceeding 2.0 seconds were noted. 66 ventricular ectopics, which represented < 1% of the total beat count, were noted. The highest sarina tricular ectopic frequency occurred from 07:00 PM to 08:00 PM Tue. During this time 11 VE(s) occurre d. Ventricular ectopics were observed as 66 isolated beat(s) only. No couplets or runs were noted. No supraventricular ectopics were noted. No episodes of ST depression (defined as -1.0 mm or more) were noted in channel 1. No episodes of ST depression (defined as -1.0 mm or more) were noted in channel 2. No episodes of ST depression (defined as -1.0 mm or more) were noted in channel 3. TEST INTERPRETATION: 1) Sinus rhythm 2) Rare PVC, no PACs noted 3) No pauses noted 4) No arrhythmias noted 5) No diary returned Signed by : Garry Easley
== END 2017-07-28 18:10 | disposition home health service (06) ==
LOC: PHED 11:28 → PHEDA 14:50 → PH3A 15:39
PROVIDERS: ADMIT Legal Medicine; ATTEND Legal Medicine
DX: G45.9 Transient cerebral ischemic attack, unspecified (principal); N30.00 Acute cystitis without hematuria; B96.20 Unspecified Escherichia coli [E. coli] as the cause of diseases classified elsewhere; M25.551 Pain in right hip; S60.211A Contusion of right wrist, initial encounter; S60.031A Contusion of right middle finger without damage to nail, initial encounter; S60.041A Contusion of right ring finger without damage to nail, initial encounter; R10.2 Pelvic and perineal pain; E78.5 Hyperlipidemia, unspecified; I49.3 Ventricular premature depolarization; R94.31 Abnormal electrocardiogram [ECG] [EKG]; I10 Essential (primary) hypertension; E11.65 Type 2 diabetes mellitus with hyperglycemia; G31.9 Degenerative disease of nervous system, unspecified; F03.90 Unspecified dementia, unspecified severity, without behavioral disturbance, psychotic disturbance, mood disturbance, and anxiety; W19.XXXA Unspecified fall, initial encounter
CPT/HCPCS: 70450; 70544; 70551; 72170; 73552; 80048; 81001; 82948; 85025; 85610; 85730; 87077; 87086; 87186; 93005; 93225; 93226; 93306; 93880; 96365; 96366; 96372; 97110; 97162; 97530; 99285; G0378; G8987; G8988; J0696; J1815